=== PATIENT | male | born 1975 | race Caucasian/White ===

== ENCOUNTER 2020-03-18 23:45 | Emergency (ER) | payer OTHER ==
[~2020-03-18] VITALS: Ht 182.8 cm; Wt 138.3 kg
[2020-03-19] MEDS ORDERED: PREDNISONE10 MG PO (00:04)
== END 2020-03-19 00:43 | disposition home or self-care (01) ==
LOC: ED 23:45
DX: L25.9 Unspecified contact dermatitis, unspecified cause (principal); I10 Essential (primary) hypertension; F17.200 Nicotine dependence, unspecified, uncomplicated; Z88.8 Allergy status to other drugs, medicaments and biological substances

== ENCOUNTER 2020-03-31 18:17 | Emergency (ER) | payer OTHER ==
[~2020-03-31] VITALS: Ht 182.8 cm; Wt 136.1 kg
[~2020-03-31 18:17] MED LIST: PREDNISONE10 MG PO
[2020-03-31] MEDS ORDERED: CEPHALEXIN500 M1 PO (18:48)
[2020-03-31] MEDS ORDERED: SEPTDS PO (18:48)
== END 2020-03-31 19:15 | disposition home or self-care (01) ==
LOC: ED 18:17
DX: L02.414 Cutaneous abscess of left upper limb (principal); L02.413 Cutaneous abscess of right upper limb; Z48.03 Encounter for change or removal of drains; I10 Essential (primary) hypertension; Z88.8 Allergy status to other drugs, medicaments and biological substances; Z79.899 Other long term (current) drug therapy